=== PATIENT | female | born 1970 ===

== ENCOUNTER 2017-05-26 18:23 | Emergency (ER) | payer OTHER ==
[2017-05-26 19:43] VITALS: BP 106/68; PULSE 69; RESP 18; TEMP 98.9; O2SAT 99
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
== END 2017-05-26 22:25 | disposition home or self-care (01) ==
LOC: C.ER 18:23
DX: S33.5XXA Sprain of ligaments of lumbar spine, initial encounter (principal); S00.03XA Contusion of scalp, initial encounter; V03.90XA Pedestrian on foot injured in collision with car, pick-up truck or van, unspecified whether traffic or nontraffic accident, initial encounter; Y92.414 Local residential or business street as the place of occurrence of the external cause